=== PATIENT | female | born 1965 | race Hispanic/Latino ===

== ENCOUNTER 2023-08-20 06:27 | Day surgery (SDC) | payer SELFPAY ==
[2023-08-18 12:57] VITALS: BMI 30.7
[2023-08-20] MEDS ORDERED: Lidocaine 2% MPF 10 ML AMP (For Epidural Use) ONE (07:50)
[2023-08-20] MEDS ORDERED: PROPOFOL 60 ML ONE (07:50)
[2023-08-20] MEDS ORDERED: Glycopyrrolate 0.2 MG/ML 5 ML SYRINGE ONE (08:29)
== END 2023-08-20 09:33 | disposition home or self-care (01) ==
LOC: CSHSDC 06:27
PROVIDERS: ATTEND Internal Medicine Gastroenterology
PROC: 0DJD8ZZ Inspection of Lower Intestinal Tract, Via Natural or Artificial Opening Endoscopic (ICD-10-PCS; principal; 2023-08-20)
DX: K57.30 Diverticulosis of large intestine without perforation or abscess without bleeding (principal); K64.8 Other hemorrhoids; K92.1 Melena; Z88.8 Allergy status to other drugs, medicaments and biological substances; I10 Essential (primary) hypertension
CPT/HCPCS: J2704

== ENCOUNTER 2024-11-04 19:30 | Inpatient (IN) | payer SELFPAY ==
[~2024-11-04 19:30] MED LIST: Iopamidol 300 61% 100 ML VIAL FS ONE
[2024-11-04 20:16] LABS: Bilirubin Neg (Negative); Blood, Urine Negative (Negative); Clarity Clear (Clear); Glucose, Urine (Dipstick) Normal (Negative); Ketone, Urine Negative (Negative); Leukocyte 25 (Negative); Nitrite Negative (Negative); Protein, Urine (Dipstick) 30 mg/dl (Neg-Trace); Urobilinogen Normal mg/dL (Less than 2)
[2024-11-04] MEDS ORDERED: fentaNYL 50 mcg/mL 1 mL Vial ONE (20:29)
[2024-11-04] MEDS ORDERED: Ondansetron PF 4 MG/2 ML Vial ONE (20:30)
[2024-11-04 20:33] LABS: #Basophils 0.06 10x3/uL (0.0-0.2); #Eosinophils 0.08 10x3/uL (0.0-0.5); #Monocytes 0.53 10x3/uL (0.0-1.1); #Neutrophils 5.71 10x3/uL (1.5-8.4); %Basophils 0.6 % (0.0-2.0); %Eosinophils 0.8 % (0.0-6.0); %Lymphocytes 33.4 % (18.0-47.0); %Monocytes 5.5 % (0.0-10.0); %Neutrophils 59.5 % (40.0-75.0); Hematocrit 35.1 % (34.9-44.5); Hemoglobin 11.9 g/dL (12.0-15.5); Mean Corpuscular HGB CONC 33.9 g/dL (32.0-36.0); Mean Corpuscular Hemoglobin 28.4 pg (27.0-33.0); Mean Corpuscular Volume 83.8 fL (81.6-98.3); Mean Platelet Volume 10.1 fL (7.4-10.4); Platelet Count 269 10x3/uL (150-450); RBC Distribution Width 13.9 % (11.5-14.5); Red Blood Cell (RBC) Count 4.19 10x6/uL (3.90-5.03); White Blood Cell (WBC) Count 9.61 10x3/uL (3.5-10.5)
[2024-11-04 20:54] LABS: ALT (SGPT) 47 U/L (Less than 34); AST (SGOT) 50 U/L (11-34); Albumin 3.8 g/dL (3.1-4.5); Alkaline Phosphatase 68 U/L (40-110); Anion Gap 16 mmol/L (10-20); BUN (Urea Nitrogen) 14 mg/dL (9.8-20.1); Bilirubin, Total 0.4 mg/dL (0.3-1.2); Calc. Creatinine Clearance 0 mL/min (70-130); Calcium 9.1 mg/dL (7.8-10.44); Carbon Dioxide 22 mmol/L (22-29); Chloride 102 mmol/L (98-107); Estimated GFR 90; Globulin 4.1 g/dL (2.4-3.5); Glucose 159 mg/dL (70-105); Lipase 44 U/L (8-78); Magnesium 1.6 mg/dL (1.6-2.6); Potassium 3.5 mmol/L (3.5-5.1); Protein, Total 7.9 g/dL (6.0-8.3); Sodium 136 mmol/L (136-145)
[2024-11-04 21:42] LABS: Bacteria/HPF 1+ HPF (None Seen); CAUTI Indications for Culture Pelvic or flank pain; RBC/HPF 0-3 HPF (0-3); Squamous Epithelial 0-3 HPF (0-3); WBC/HPF 0-3 HPF (0-3)
[2024-11-04 21:43] LABS: Mucous/LPF 1+ LPF (<2+)
[2024-11-04 21:44] LABS: Urine Culture Reflex No No
[2024-11-04] MEDS ORDERED: Ondansetron PF 4 MG/2 ML Vial IVP PRN (22:08)
[2024-11-04] MEDS ORDERED: Dextrose 5% in Water 1,000 ML IV PRN (22:08)
[2024-11-04] MEDS ORDERED: Glucagon 1 MG/ML KIT IM PRN (22:08)
[2024-11-04] MEDS ORDERED: Dextrose 50% Abboject 50 ML SYRINGE SLOW IVP PRN (22:08)
[2024-11-04] MEDS ORDERED: Insulin Lispro 100 UNIT/ML 10 ML VIAL SC PRN (22:08)
[2024-11-04] MEDS ORDERED: hydrALAZINE 20 MG/ML VIAL SLOW IVP PRN (22:09)
[2024-11-04] MEDS ORDERED: Morphine 2 MG/ML VIAL SLOW IVP PRN (22:10)
[2024-11-04 23:32] VITALS: BMI 29.0
[2024-11-04] MEDS: Pantoprazole 40 MG VIAL IVP SCH (23:52)
[2024-11-04] MEDS: Lactated Ringer's 1,000 ML IV SCH (23:52)
[2024-11-04] MEDS: Benzocaine 20% Spray 60 ML CAN PO SCH (23:53)
[2024-11-05] MEDS: Morphine 4 MG/ML VIAL SLOW IVP PRN (00:02)
[2024-11-05 04:07] LABS: #Basophils 0.03 10x3/uL (0.0-0.2); #Eosinophils 0.09 10x3/uL (0.0-0.5); #Monocytes 0.52 10x3/uL (0.0-1.1); #Neutrophils 4.64 10x3/uL (1.5-8.4); %Basophils 0.3 % (0.0-2.0); %Lymphocytes 40.4 % (18.0-47.0); %Monocytes 5.8 % (0.0-10.0); %Neutrophils 52.3 % (40.0-75.0); Hemoglobin 10.6 g/dL (12.0-15.5); Mean Corpuscular HGB CONC 32.1 g/dL (32.0-36.0); Platelet Count 259 10x3/uL (150-450); RBC Distribution Width 13.8 % (11.5-14.5); Red Blood Cell (RBC) Count 3.93 10x6/uL (3.90-5.03); White Blood Cell (WBC) Count 8.89 10x3/uL (3.5-10.5)
[2024-11-05 04:26] LABS: ALT (SGPT) 41 U/L (Less than 34); AST (SGOT) 40 U/L (11-34); Albumin 3.5 g/dL (3.1-4.5); Alkaline Phosphatase 63 U/L (40-110); Anion Gap 15 mmol/L (10-20); BUN (Urea Nitrogen) 11 mg/dL (9.8-20.1); Bilirubin, Total 0.5 mg/dL (0.3-1.2); Calc. Creatinine Clearance 101 mL/min (70-130); Calcium 8.5 mg/dL (7.8-10.44); Carbon Dioxide 24 mmol/L (22-29); Chloride 104 mmol/L (98-107); Cholesterol 159 mg/dl (< 200 Desired); Estimated GFR 92; Globulin 3.5 g/dL (2.4-3.5); Glucose 117 mg/dL (70-105); HDL Cholesterol 40 mg/dL (>60 Neg Risk); LDL Cholesterol, Calculated 99 mg/dL; Magnesium 1.8 mg/dL (1.6-2.6); Potassium 3.8 mmol/L (3.5-5.1); Sodium 139 mmol/L (136-145); Triglycerides 98 mg/dL (Less than 150)
[2024-11-05] MEDS: Enoxaparin 40 MG (0.4 mL) SYRINGE SC SCH (08:47)
[2024-11-05] MEDS: Pantoprazole 40 MG VIAL IVP SCH (08:47)
[2024-11-05] MEDS: FLU (Fluarix Triv) TS24-25(6MOS UP)/PF 45 MCG/0.5 ML Syringe IM ONE (08:48)
[2024-11-05] MEDS: Ketorolac Tromethamine 30 MG (1 mL) VIAL IVP PRN (11:23)
[2024-11-05 14:37] VITALS: BMI 29.0
[2024-11-06] MEDS ORDERED: MD-Gastroview 120 ML BOT ONE (10:47)
[2024-11-07 04:05] LABS: #Basophils 0.03 10x3/uL (0.0-0.2); #Eosinophils 0.11 10x3/uL (0.0-0.5); #Monocytes 0.53 10x3/uL (0.0-1.1); #Neutrophils 3.51 10x3/uL (1.5-8.4); %Basophils 0.4 % (0.0-2.0); %Eosinophils 1.5 % (0.0-6.0); %Lymphocytes 41.2 % (18.0-47.0); %Monocytes 7.4 % (0.0-10.0); %Neutrophils 49.2 % (40.0-75.0); Hematocrit 32.7 % (34.9-44.5); Hemoglobin 10.5 g/dL (12.0-15.5); Mean Corpuscular HGB CONC 32.1 g/dL (32.0-36.0); Mean Corpuscular Hemoglobin 26.9 pg (27.0-33.0); Mean Corpuscular Volume 83.8 fL (81.6-98.3); Mean Platelet Volume 10.2 fL (7.4-10.4); Platelet Count 227 10x3/uL (150-450); RBC Distribution Width 13.6 % (11.5-14.5); White Blood Cell (WBC) Count 7.14 10x3/uL (3.5-10.5)
[2024-11-07 04:27] LABS: ALT (SGPT) 34 U/L (Less than 34); AST (SGOT) 33 U/L (11-34); Albumin 3.3 g/dL (3.1-4.5); Alkaline Phosphatase 78 U/L (40-110); Anion Gap 15 mmol/L (10-20); BUN (Urea Nitrogen) 9 mg/dL (9.8-20.1); Bilirubin, Total 0.4 mg/dL (0.3-1.2); Calc. Creatinine Clearance 108 mL/min (70-130); Calcium 8.9 mg/dL (7.8-10.44); Carbon Dioxide 25 mmol/L (22-29); Chloride 104 mmol/L (98-107); Estimated GFR 100; Globulin 3.7 g/dL (2.4-3.5); Glucose 102 mg/dL (70-105); Sodium 141 mmol/L (136-145)
[2024-11-07 12:13] VITALS: BP 125/75; TEMP 98.7
[2024-11-07] MEDS ORDERED: Sertraline 100 MG TAB PO SCH (21:00)
[2024-11-07] MEDS ORDERED: Atorvastatin Calcium 40 MG TAB PO SCH (21:00)
== END 2024-11-07 12:58 | disposition home or self-care (01) | DRG 389 ==
LOC: CSHERS 19:30 → CSHTELE 23:23 → OBSVTOIN 23:23
PROVIDERS: ADMIT Student in an Organized Health Care Education/Training Program; ATTEND Family Medicine
DX: K56.600 Partial intestinal obstruction, unspecified as to cause (principal); F33.9 Major depressive disorder, recurrent, unspecified; E11.9 Type 2 diabetes mellitus without complications; I10 Essential (primary) hypertension; E78.5 Hyperlipidemia, unspecified; R74.01 Elevation of levels of liver transaminase levels; Z79.84 Long term (current) use of oral hypoglycemic drugs; Z79.899 Other long term (current) drug therapy; Z85.42 Personal history of malignant neoplasm of other parts of uterus; Z90.710 Acquired absence of both cervix and uterus; Z79.82 Long term (current) use of aspirin; Z23 Encounter for immunization
CPT/HCPCS: 36415; 36416; 71045; 74018; 74177; 74250; 80053; 80061; 81001; 83605; 83690; 83735; 85025; 87086; 94762; J1650; J1885; J2270; J2405; J2470; J3010; J7120; Q9963; Q9967